=== PATIENT | male | born 1985 | race Caucasian/White ===

== ENCOUNTER 2024-06-06 04:50 | Emergency (ER) | payer OTHER ==
[~2024-06-06] VITALS: Ht 167.6 cm; Wt 113.4 kg
[2024-06-06 05:02] VITALS: BP 126/63; TEMP 98.2; O2SAT 100
[2024-06-06] MEDS ORDERED: [UNRECOGNIZED DRUG - CODE] PO (05:09)
== END 2024-06-06 05:22 | disposition home or self-care (01) ==
LOC: ER 04:55
DX: R09.81 Nasal congestion (principal); Z60.2 Problems related to living alone